=== PATIENT | female | born 1970 | race Two or more races ===

== ENCOUNTER → 2019-08-05 | Outpatient (CLI) | payer MEDICAID ==
[~2019-08-05] VITALS: Ht 162.6 cm; Wt 64.0 kg
[~2019-08-05] MED LIST: DIAZEPAM5 MG ORAL; FOLIC ACID1 MG ORAL; FUROSEMIDE40 MG ORAL; IRON325 M1 PO; LACTULOSE20 GM/301 ORAL; PROPRANOLOL HCL20 MG ORAL; SPIRONOLACTONE50 MG ORAL
[2019-08-05 13:10] VITALS: BP 112/69
--- NOTE | 2019-08-06 15:30 | Consultation ---
DATE OF CONSULTATION: 08/05/2019 CONSULTING PHYSICIAN: rFank Ivory M.D. REASON FOR REFERRAL: Endoscopy for esophageal varices. HISTORY OF PRESENT ILLNESS: This is a 49-year-old female with past medical history of alcoholic cirrhosis, has history of esophageal varices requiring banding in the past according to her multiple times, and blood transfusions who was referred to us for repeat banding. PAST MEDICAL HISTORY: 1. History of cirrhosis, alcoholic. 2. Hypercholesterolemia. 3. Anemia requiring blood transfusion. 4. Gallstones. PAST SURGICAL HISTORY: None. MEDICATIONS: Please see medication reconciliation list. FAMILY HISTORY: Noncontributory. SOCIAL HISTORY: The patient used to be drinker, but she has stopped since January of 2017. Also she used to be smoker, but she cut down. Also she used to smoke one-half pack a day. ALLERGIES: To penicillin. MEDICATIONS: Please see medication reconciliation list. REVIEW OF SYSTEMS: Positive for GERD, on and off right upper quadrant abdominal pain, nausea. PHYSICAL EXAMINATION: VITAL SIGNS: Temperature 97.8, blood pressure is 112/69, pulse is 92, respirations 20. HEENT: Normocephalic, atraumatic. Sclerae, anicteric. NECK: Supple. No evidence of obvious lymphadenopathy. CARDIOVASCULAR: Regular rate and rhythm. Plus S1 and S2. No obvious murmur. LUNGS: Clear breath sounds bilaterally. ABDOMEN: Positive bowel sounds. Soft and nontender. No rebound. No guarding. No peritoneal sign. EXTREMITIES: No cyanosis. No clubbing. No edema. ASSESSMENT AND PLAN: This is a 49-year-old female with cirrhosis complicated by esophageal varices and bleeding. Currently, the patient is on Aldactone, Lasix, propranolol, and lactulose. Plan to get an authorization for endoscopy and repeat banding. Continue current medication. The patient was advised to not to go back to drinking given the current situation. Frank Ivory M.D. DR: POLO JOB#: [id number] CC:
== END | disposition home or self-care (01) ==
LOC: PAN 09:26
DX: K74.60 Unspecified cirrhosis of liver (principal); E78.00 Pure hypercholesterolemia, unspecified; I85.11 Secondary esophageal varices with bleeding; K21.9 Gastro-esophageal reflux disease without esophagitis; R10.11 Right upper quadrant pain; R11.0 Nausea

== ENCOUNTER 2019-09-22 13:02 | Outpatient (CLI) | payer MEDICAID ==
--- NOTE | 2019-09-22 14:10 | GI Progress Note ---
Assessment/Plan Problems: (1) Liver cirrhosis ICD Codes: K74.60 - Unspecified cirrhosis of liver SNOMED: 53507786 (2) Esophageal varices ICD Codes: I85.00 - Esophageal varices without bleeding SNOMED: 50368075 Status: stable Status Narrative Discussed with Dr. Ivory Assessment/Plan Patient status post endoscopy with banding x4 on September 17, 2019 Summary of findings 1. Distal esophageal varices status post banding x4 2. Small hiatal hernia 3. Gastritis post biopsy Biopsy negative for Helicobacter pylori. No intestinal metaplasia or dysplasia or malignancy seen. Findings reviewed with patient Propranolol Aldactone Lasix Return to clinic in 3 months for repeat labs The patient was seen and examined at bedside and all new and available data was reviewed in the patients chart. I agree with the above findings, impression and plan. (Patient seen earlier today. Signature stamp does not reflect patient encounter time.). - Frank Ivory MD Subjective Gastrointestinal/Abdominal: Reports: no symptoms Objective Blood pressure 98/69 Pulse 88 Oxygen saturation 98% room air Weight 136 pounds General Appearance: WD/WN, no apparent distress, alert Cardiovascular: normal rate Respiratory/Chest: normal breath sounds, no respiratory distress Abdominal Exam: normal bowel sounds, non tender, soft Extremities: normal range of motion, non-tender Maya Ruiz NP Sep 22, 2019 14:09
[2019-09-22 16:00] VITALS: BP 98/69
== END 2019-09-22 15:02 | disposition home or self-care (01) ==
LOC: PAN 13:02
DX: K74.60 Unspecified cirrhosis of liver (principal); I85.00 Esophageal varices without bleeding; K29.70 Gastritis, unspecified, without bleeding; K44.9 Diaphragmatic hernia without obstruction or gangrene